=== PATIENT | female | born 1995 | race Caucasian/White ===

== ENCOUNTER 2024-09-07 08:00 | Emergency (ER) | payer MEDICAID ==
[~2024-09-07] VITALS: Ht 154.9 cm; Wt 52.1 kg
[2024-09-07 08:04] VITALS: TEMP 36.7; O2SAT 100
[2024-09-07] MEDS ORDERED: LORAZEPAM 2MG/ML INJ IV ONE (08:15)
[2024-09-07 08:44] LABS: BASOPHILS % 0.6 % (0.0-2.0); EOSINOPHILS % 1.4 % (0.0-5.0); HEMATOCRIT. 40.7 % (36.0-48.0); HEMOGLOBIN. 13.9 g/dL (12.0-16.0); LYMPHOCYTES % 41.7 % (20.0-50.0); MEAN CORPUSCULAR HEMOGLOBIN 30.9 pg (28.0-32.0); MEAN CORPUSCULAR HGB CONC 34.1 g/dL (31.0-37.0); MEAN CORPUSCULAR VOLUME 90.6 fL (81.0-99.0); MEAN PLATELET VOLUME 7.9 fl (7.4-10.4); MONOCYTES % 8.3 % (2.0-8.0); PLATELET 253 x1000/uL (130-400); RED BLOOD CELL COUNT 4.49 mill/uL (4.2-5.4); RED CELL DISTRIBUTION WIDTH 13.3 % (11.6-14.6); WHITE BLOOD COUNT 8.1 x1000/uL (4.5-11.0)
[2024-09-07 08:50] LABS: CHLORIDE 104 mEq/L (98-107); POTASSIUM 3.1 mEq/L (3.5-5.1); SODIUM 141 mEq/L (136-145)
[2024-09-07 08:51] LABS: CARBON DIOXIDE 25 mEq/L (21-32)
[2024-09-07 08:52] LABS: CALCIUM 10.3 mg/dL (8.7-10.4)
[2024-09-07 08:56] LABS: CREATININE 0.8 mg/dL (0.6-1.0); GLUCOSE 118 mg/dL (70-105)
[2024-09-07 08:57] LABS: ETHANOL BLOOD 21 mg/dL (<10); UREA NITROGEN BLOOD 9 mg/dL (9-23)
[2024-09-07] MEDS: LORAZEPAM 2MG/ML UD SYRINGE IV SCH (09:45)
[2024-09-07] MEDS: POTASSIUM CHLORIDE 20MEQ/PACKET PO ONE (09:46)
[2024-09-07] MEDS: SODIUM CHLORIDE 0.9% 500 ML IV ONE (09:47)
[2024-09-07 11:53] VITALS: BP 97/61; PULSE 87; RESP 16; O2SAT 100
== END 2024-09-07 11:56 | disposition home or self-care (01) ==
LOC: ER 08:00
DX: R20.2 Paresthesia of skin (principal); E87.6 Hypokalemia; F41.9 Anxiety disorder, unspecified
CPT/HCPCS: 80048; 81025; 80320; 85025; 36415; 96361; 96374; 99283; J2060; J7030; G0480